=== PATIENT | male | born 1945 | race Caucasian/White ===

== ENCOUNTER 2021-10-21 17:50 | Inpatient (IN) | payer OTHER ==
[~2021-10-21] VITALS: Ht 175.3 cm; Wt 54.9 kg
[2021-10-21] MEDS ORDERED: IPRATROPIUM BROMIDE 0.5 MG/2.5 ML NEBU NEB ONE (18:15)
[2021-10-21] MEDS ORDERED: ALBUTEROL SULFATE 2.5 MG/3 ML NEBU NEB ONE (18:15)
[2021-10-21] MEDS ORDERED: methylPREDNISolone SOD SUCC 125 MG/2 ML VIAL IV ONE (18:15)
[2021-10-21 18:22] LABS: ABG BASE EXCESS 4.8 mmol/L; ABG HCO3 30.9 mmol/L; ABG PCO2 52.3 mmHg (35.0-45.0); ABG SITE RIGHT RADIAL; ABG TOTAL HEMOGLOBIN 13.6 G/dL (13.5-18.0); COHb 0.1 % (0.5-1.5); MetHb 0.3 % (0.0-1.5); O2Hb 96.7 % (94.0-97.0); VENT MODE Nasal Cannula
[2021-10-21] MEDS ORDERED: ALBUTEROL SULFATE 2.5 MG/3 ML NEBU ONE (18:25)
[2021-10-21] MEDS ORDERED: IPRATROPIUM BROMIDE 0.5 MG/2.5 ML NEBU ONE (18:25)
[2021-10-21] MEDS ORDERED: ALBUTEROL SULFATE 2.5 MG/ 0.5 ML NEBU ONE (18:25)
--- NOTE | 2021-10-21 18:37 | NUR ---
PT IS IN ROOM #2B. DR ALLEN EVALUATED THEPT.
[2021-10-21 18:43] LABS: CARBON DIOXIDE 32 mmol/L (21-32); CHLORIDE 99 mmol/L (98-107); CREATININE 0.6 mg/dL (0.6-1.3); GLUCOSE 90 mg/dL (74-106); POTASSIUM 3.6 mmol/L (3.5-5.1); UREA NITROGEN, BLOOD 22 mg/dL (7-18)
[2021-10-21] MEDS ORDERED: MONT10TA22 PO (18:43)
[2021-10-21] MEDS ORDERED: TIOT18CA3 INH (18:43)
[2021-10-21] MEDS ORDERED: FINA5TAB3 PO (18:43)
[2021-10-21] MEDS ORDERED: HYDR-894 PO (18:43)
[2021-10-21] MEDS ORDERED: TAMS-3 PO (18:43)
[2021-10-21] MEDS ORDERED: AMLO-212 PO (18:43)
[2021-10-21] MEDS ORDERED: FAMO20TA8 PO (18:43)
[2021-10-21] MEDS ORDERED: MEMA1CAP3 PO (18:43)
[2021-10-21] MEDS ORDERED: ALBU2.5V38 NEB (18:43)
[2021-10-21] MEDS ORDERED: MIRT-94 PO (18:43)
[2021-10-21] MEDS ORDERED: MAGN400T8 PO (18:43)
[2021-10-21] MEDS ORDERED: FLUT1BLS12 IH (18:43)
[2021-10-21 18:46] LABS: HEMATOCRIT 38.8 % (36.7-47.1); MEAN CORPUSCULAR HEMOGLOBIN 31.4 uug (23.8-33.4); MEAN CORPUSCULAR VOLUME 92.2 fL (73.0-96.2); PLATELET COUNT (AUTO) 158 K/uL (152-348)
[2021-10-21] MEDS ORDERED: methylPREDNISolone SOD SUCC 125 MG/2 ML VIAL ONE (18:53)
[2021-10-21 18:56] LABS: ALANINE AMINOTRANSFERASE 38 U/L (16-63); ALKALINE PHOSPHATASE 67 U/L (50-136); ASPARTATE AMINOTRANSFERASE 56 U/L (15-37); BILIRUBIN,DIRECT 0.2 mg/dL (0.0-0.2); BILIRUBIN,TOTAL 0.7 mg/dL (0.2-1.0); TOTAL PROTEIN, SERUM 7.3 g/dL (6.4-8.2)
--- NOTE | 2021-10-21 19:00 | NUR ---
Received report from KAYLA Kirby. Patient in bed at lowest position. Currently receiving breathing tx. Pending further instruction.
--- NOTE | 2021-10-21 20:00 | NUR ---
Patient in bed at lowest position, sr upx2, call light within reach. Fall and safety precautions implemented per protocol.
[2021-10-22] MEDS ORDERED: REMEDY ESSENTIAL ZINC PASTE 113 GM TP PRN (02:15)
[2021-10-22] MEDS ORDERED: IPRATROPIUM BROMIDE 0.5 MG/2.5 ML NEBU NEB PRN (02:15)
[2021-10-22] MEDS ORDERED: ENOXAPARIN SODIUM 40 MG/0.4 ML DISP.SYRIN SQ SCH (02:15)
[2021-10-22] MEDS ORDERED: HYDROCODONE/APAP 5-325MG TABLET PO PRN (02:15)
[2021-10-22] MEDS ORDERED: ONDANSETRON 4 MG/2 ML VIAL IV PRN (02:15)
[2021-10-22] MEDS ORDERED: ACETAMINOPHEN 325 MG TABLET PO PRN (02:15)
[2021-10-22] MEDS ORDERED: ALBUTEROL SULFATE 2.5 MG/3 ML NEBU NEB PRN (02:15)
[2021-10-22] MEDS ORDERED: MAGNESIUM HYDROXIDE 30 ML LIQUID UDC PO PRN (02:15)
[2021-10-22] MEDS ORDERED: ENOXAPARIN SODIUM 40 MG/0.4 ML DISP.SYRIN SQ ONE (05:46)
[2021-10-22] MEDS ORDERED: methylPREDNISolone SOD SUCC 40 MG/ML VIAL ONE ×3 (05:46→17:19)
[2021-10-22] MEDS ORDERED: methylPREDNISolone SOD SUCC 125 MG/2 ML VIAL IV SCH (06:00)
--- NOTE | 2021-10-22 06:30 | NUR ---
Patient in bed sitting high-fowlers. Denies any acute distress at this time. O2 running via NC 3L. VSS. Will continue to monitor.
[2021-10-22] MEDS: methylPREDNISolone SOD SUCC 40 MG/ML VIAL IV SCH ×3 (06:45→17:48)
[2021-10-22] MEDS: PANTOPRAZOLE SODIUM 40 MG TABLET.DR PO SCH (07:07)
[2021-10-22] MEDS ORDERED: PANTOPRAZOLE SODIUM 40 MG TABLET.DR PO ONE (07:17)
--- NOTE | 2021-10-22 07:45 | NUR ---
PT ATE BREAKFAST 80% OF THE TRAY. PT IS RESTING COMFORTABLY IN BED NO S/S OF DISTRESS AT THIS TIME.
[2021-10-22] MEDS: hydrALAZINE HCL 25 MG TABLET PO SCH ×2 (12:14→17:49)
[2021-10-22] MEDS ORDERED: hydrALAZINE HCL 25 MG TABLET ONE ×2 (12:25→17:20)
[2021-10-22] MEDS ORDERED: BUPR300T52 PO (16:05)
[2021-10-22] MEDS ORDERED: TAMSULOSIN HCL 0.4 MG CAP.SR.24H PO SCH (17:00)
[2021-10-22] MEDS ORDERED: FLUTICASONE/SALMETEROL 250/50 INHALER IH SCH (17:00)
[2021-10-22] MEDS: MEMANTINE HCL 10 MG TABLET PO SCH (17:15)
[2021-10-22] MEDS: MAGNESIUM OXIDE 400 MG TABLET PO SCH (17:15)
[2021-10-22] MEDS: AMLODIPINE 5 MG TABLET PO SCH (17:16)
[2021-10-22] MEDS ORDERED: TAMSULOSIN HCL 0.4 MG CAP.SR.24H ONE (17:18)
[2021-10-22] MEDS ORDERED: MAGNESIUM OXIDE 400 MG TABLET ONE (17:19)
[2021-10-22] MEDS ORDERED: AMLODIPINE 5 MG TABLET ONE (17:19)
[2021-10-22] MEDS ORDERED: Medication Not On Formulary EA (Mirtazapine 1 TAB) PO SCH (18:00)
--- NOTE | 2021-10-22 19:08 | NUR ---
RPORT GIVEN TO NURSE SUBSTANCE ABUSE KAYLA FISHER.
--- NOTE | 2021-10-22 19:09 | NUR ---
RECEIVED REPORT FROM KAYLA BARTHOLOMEW. PT NOTED TO BE IN BED, EATING DINNER, WELL TOLERATED. NO SOB OR LABORED BREATHING. DENIES ANY PAIN/DISCOMFORT.
[2021-10-22] MEDS ORDERED: MIRTAZAPINE 15 MG TABLET PO SCH (21:00)
[2021-10-22] MEDS ORDERED: MONTELUKAST SODIUM 10 MG TABLET PO SCH (21:00)
--- NOTE | 2021-10-22 22:29 | NUR ---
GAVE REPORT TO KAYLA IRENE.
--- NOTE | 2021-10-22 23:50 | NUR ---
Pt. admitted to TELE , under care of Dx: COPD EXACERBATION Belongs List completed
[2021-10-23 00:12] VITALS: BP 159/32
[2021-10-23] MEDS: methylPREDNISolone SOD SUCC 40 MG/ML VIAL IV SCH ×3 (00:14→13:06)
[2021-10-23] MEDS: hydrALAZINE HCL 25 MG TABLET PO SCH ×3 (00:17→13:06)
[2021-10-23 00:18] VITALS: BP 126/62
[2021-10-23 04:37] VITALS: BP 101/56
--- NOTE | 2021-10-23 05:32 | NUR ---
Pt admitted to tele, ST on monitor. No distress noted. Able to make needs known. IV site intact. Strict I&Os implemented. C/o SOB that is alleviated with nebulizer treatments and being on 3L O2. Pt states that his baseline is 3L O2 at home. Safety maintained throughout shift. Will endorse to day shift.
[2021-10-23] MEDS: PANTOPRAZOLE SODIUM 40 MG TABLET.DR PO SCH (06:02)
[2021-10-23 07:36] LABS: MEAN CORPUSCULAR HEMOGLOBIN 31.5 uug (23.8-33.4); MEAN CORPUSCULAR VOLUME 91.8 fL (73.0-96.2); PLATELET COUNT (AUTO) 155 K/uL (152-348)
[2021-10-23 07:46] LABS: CREATININE 0.6 mg/dL (0.6-1.3); PHOSPHOROUS 3.5 mg/dL (2.5-4.9); POTASSIUM 3.9 mmol/L (3.5-5.1)
[2021-10-23 08:00] VITALS: BP 126/61
[2021-10-23] MEDS ORDERED: Medication Not On Formulary EA (Memantine HCl/Donepezil HCl (Namzaric 28 mg-10 mg Capsul PO SCH (09:00)
[2021-10-23] MEDS ORDERED: FLUTICASONE/VILANTEROL 1 EACH BLST.W.DEV INH SCH (09:00)
[2021-10-23] MEDS ORDERED: TAMSULOSIN HCL 0.4 MG CAP.SR.24H PO SCH (09:00)
[2021-10-23] MEDS ORDERED: buPROPion XL 150 MG TAB.SR.24H PO SCH (09:00)
[2021-10-23] MEDS ORDERED: ENOXAPARIN SODIUM 40 MG/0.4 ML DISP.SYRIN SQ SCH (09:00)
[2021-10-23] MEDS ORDERED: DONEPEZIL 10 MG TABLET PO SCH (09:00)
[2021-10-23] MEDS ORDERED: FINASTERIDE 5 MG TABLET PO SCH (09:00)
[2021-10-23] MEDS: MEMANTINE HCL 10 MG TABLET PO SCH (10:10)
[2021-10-23] MEDS: MAGNESIUM OXIDE 400 MG TABLET PO SCH (10:11)
[2021-10-23] MEDS: AMLODIPINE 5 MG TABLET PO SCH (10:20)
--- NOTE | 2021-10-23 11:00 | NUR ---
Pt is a/o x 3, presenting with sinus rhythm on telemetry. Pt is ambulatory with assist, saturating 96% on 3 L NC. Sister in room at bedside. Plan is to discharge home today. Comfort measures provided, call light within reach. Will continue to monitor.
[2021-10-23 11:41] VITALS: BP 128/61
[2021-10-23] MEDS ORDERED: METH4TAB3 PO (12:19)
[2021-10-23] MEDS ORDERED: ALBU18HF2 INH (12:19)
[2021-10-23] MEDS ORDERED: ENSURE ENLIVE (VAN) 240 ML LIQUID PO SCH (13:00)
[2021-10-23 16:00] VITALS: BP 119/60
--- NOTE | 2021-10-23 16:32 | NUR ---
pt is discharge home via private car. Pt's sister picked up pt and brought portable oxygen for transport. Pt was wheeled down with oxygen at 3L, saturating 96%. Discharge information given to pt and sister. All personal belongings at hand and signed for. educated both pt and sister to monitor tank and refill when it is empty. Pt is ambulatory with mild assist, stable for discharge. Sister's number (Josseline) . IV and ID band removed.
== END 2021-10-23 16:30 | disposition home or self-care (01) | DRG 189 ==
LOC: ER 17:52 → TRANSITION 23:59 → TELE3 10-22 23:33
PROVIDERS: ADMIT Hospitalist; ATTEND Hospitalist
DX: J96.02 Acute respiratory failure with hypercapnia (principal); J44.1 Chronic obstructive pulmonary disease with (acute) exacerbation; E44.0 Moderate protein-calorie malnutrition; Z68.1 Body mass index [BMI] 19.9 or less, adult; J96.01 Acute respiratory failure with hypoxia; Z99.81 Dependence on supplemental oxygen; F03.90 Unspecified dementia, unspecified severity, without behavioral disturbance, psychotic disturbance, mood disturbance, and anxiety; F32.A Depression, unspecified; I10 Essential (primary) hypertension; Z20.822 Contact with and (suspected) exposure to COVID-19; K21.9 Gastro-esophageal reflux disease without esophagitis; N40.0 Benign prostatic hyperplasia without lower urinary tract symptoms
CPT/HCPCS: 36415; 36600; 70030-TC; 71045; 83605; 83735; 84100; 85025; 87040; 87400; 93005; 94664; A4663; G0378; J1650; J2920; J2930; J3590